=== PATIENT | female | born 1950 | race African-American/Black ===

== ENCOUNTER → 2021-07-09 13:20 | Outpatient (BNVA) | payer MEDICARE, MEDICAID, SELFPAY | DX: N39.41 Urge incontinence (principal) | CPT/HCPCS: 99212 ==

== ENCOUNTER 2021-11-25 05:00 | Outpatient (REF) | payer MEDICAID, SELFPAY | END 2021-11-25 05:01 | disposition home or self-care (01) | LOC: HO.MMNH2L 05:00 | PROVIDERS: Visit Provider Family Medicine | DX: Z13.89 Encounter for screening for other disorder (principal) ==

== ENCOUNTER → 2022-07-15 11:15 | Outpatient (BNVA) | payer OTHER, SELFPAY | PROVIDERS: PCP Internal Medicine; Visit Provider Nurse Practitioner Family | DX: N32.81 Overactive bladder (principal); N39.41 Urge incontinence | CPT/HCPCS: 51798; 99212 ==

== ENCOUNTER 2022-08-29 10:47 | Outpatient (REF) | payer OTHER, SELFPAY ==
--- NOTE | ~2022-08-29 | US_ITS ---
EXAMINATION: US RETROPERITONEAL LIMITED (RENAL ONLY) CLINICAL INFORMATION: Overactive bladder. COMPARISON: None TECHNIQUE: Real-time imaging of the kidneys. Limited exam due to patient mobility. FINDINGS: RIGHT KIDNEY: 9.8 x 4.8 x 3.4 cm (SAG x AP x TRV). The kidney is normal in size, contour, and echogenicity. Renal cortical thickness is normal. No renal calculi or hydronephrosis. Simple cyst in lower pole measuring 1.8 cm, for which no imaging follow-up is recommended. LEFT KIDNEY: 9.4 x 4.6 x 3.6 cm (SAG x AP x TRV). The kidney is normal in size, contour, and echogenicity. Renal cortical thickness is normal. No calculi or focal parenchymal lesions. No hydronephrosis. US/US retroperitoneal limited IMPRESSION: No acute sonographic abnormalities. The urinary bladder was not assessed, if deemed appropriate dedicated sonographic examinations of the bladder prior to urination and with post void images could be obtained.
== END 2022-08-29 10:48 | disposition home or self-care (01) ==
LOC: HO.US 10:47
PROVIDERS: Visit Provider Nurse Practitioner Family
DX: N39.41 Urge incontinence (principal); N32.81 Overactive bladder
CPT/HCPCS: 76775

== ENCOUNTER 2022-09-15 14:04 | Outpatient (REF) | payer OTHER, SELFPAY ==
--- NOTE | ~2022-09-15 | US_ITS ---
EXAMINATION: US PELVIS LIMITED (BLADDER) CLINICAL INFORMATION: Overactive bladder. COMPARISON: None TECHNIQUE: Real-time imaging of the bladder. FINDINGS: BLADDER: Well distended and normal. Bilateral ureteral jets are demonstrated. Prevoid bladder volume is 171 mL. Postvoid bladder volume is 59 mL. At the superior margin of the bladder, a small urachal cyst is suspected. US/US bladder IMPRESSION: 1. There is a borderline increased postvoid residual volume. 2. A small ureteral cyst is suspected at the upper margin of the urinary bladder. This is of doubtful clinical significance and could be more fully evaluated with cross-sectional imaging if of clinical concern.
== END 2022-09-15 14:05 | disposition home or self-care (01) ==
LOC: HO.US 14:04
PROVIDERS: PCP Internal Medicine; Visit Provider Nurse Practitioner Family
DX: N39.41 Urge incontinence (principal); N32.81 Overactive bladder
CPT/HCPCS: 76857

== ENCOUNTER → 2022-10-01 11:13 | Outpatient (BNVA) | payer OTHER, SELFPAY | PROVIDERS: PCP Internal Medicine; Visit Provider Nurse Practitioner Family | DX: N32.81 Overactive bladder (principal); N39.41 Urge incontinence | CPT/HCPCS: 51798; 99212 ==

== ENCOUNTER 2023-04-06 09:31 | Outpatient (AMB) | payer MEDICAID, SELFPAY ==
--- NOTE | 2023-04-06 09:35 | MHC.OFFVIS ---
Intake Intake Visit Reasons: 6m/PVR Intake Note: Patient is present for follow up [facility] Medications: toviaz Blood Thinner: aspirin, clopidogrel PVR: 0ml's Urology Surgeon Required: No Accompanied by: Daughter Allergies No Known Allergies [No Known Allergies*] Allergy (Verified 04/06/23 10:27) Medication List - Last Reconciled 04/06/23 by BRETT Sterling amlodipine 2.5 mg PO DAILY aspirin (Adult Aspirin Regimen) 81 mg PO DAILY atorvastatin 40 mg PO DAILY bimatoprost 0.01% (Lumigan) 1 drp ophthalmic (eye) BEDTIME brimonidine 0.1% (Alphagan P) 1 drp ophthalmic (eye) BID clopidogrel 75 mg PO DAILY dorzolamide-timolol 22.3-6.8 mg/mL 1 drp ophthalmic (eye) BID fesoterodine ER (Toviaz) 4 mg PO BEDTIME 90 days ketoconazole 2% appl topical BID PRN omeprazole 40 mg PO DAILY terazosin 2 mg PO BEDTIME 90 days valsartan 40 mg PO DAILY HPI HPI Comments History of Present Illness Details Kassidy is a pleasant 72 year old female patient of Dr. Montanez who is accompanied by her daughter at todays visit. She has a past medical history of pre diabetes, glaucoma, hypertension, hyperlipidemia, and overactive bladder. Patient presents to the office today for a follow up of her overactive bladder. When asked patient reports to be doing and feeling well. When asked she reports compliance with Fesoterodine 4mg and Toviaz 2 mg daily. When asked she reports to be very happy with current voiding parameters on Fesoterodine 4mg and Toviaz 2 mg daily. In office urinalysis results reviewed with the patient and her daughter today. PVR 0 mL. When asked she denies urinary urgency, urinary frequency, incontinence, nocturia, hematuria, dysuria, foul smelling urine, changes to urinary stream, flank pain, fever, and or chills. She otherwise denies any other issues or concerns at this time. [facility] Medical History Prediabetes Glaucoma Hypertension Hyperlipidemia Overactive bladder Urge incontinence of urine Review of Systems Const Reports as per HPI Eyes Reports as per HPI ENT Reports no additional complaints Card Reports as per HPI Resp Reports no additional complaints GI Reports no additional complaints Reports as per HPI Musc Reports no additional complaints Neuro Reports no additional complaints Psych Reports no additional complaints Endo Reports as per HPI Al/Lymph Reports no additional complaints Aller/Immun Reports no additional complaints Physical Exam Const General: cooperative, comfortable, no acute distress, well developed, alert and awake Nutritional Appearance: overweight Orientation/consciousness: patient oriented x3 Limitations: ambulation with cane HEENT Head: Yes normal to inspection, Yes normocephalic and Yes atraumatic Neck Neck: Yes normal visual inspection and Yes trachea midline Chest Chest palpation & inspection: normal inspection of the chest Resp Effort & Inspection: normal respiratory effort and able to speak in complete sentences Cardio Rate: regular rate GI Inspection: Yes normal to inspection Neuro General: patient oriented x3 Extrem General: Yes normal to inspection Psych Appearance: grossly normal Mental Status: mental status grossly normal Speech and movement: Normal speech and movement present and Clear speech present Affect: normal affect Attitude: cooperative Thought process: Normal thought process present Thought content: Normal thought content present Insight: Fair insight present (Psych) Judgement: Fair judgement present (Psych) Office Procedures Post Void Residual Post Residual Void Post Void Residual (PVR): 0 52110-Xfpm Void Residual by ultrasound Results AMB Urinalysis, Automated UA Leukoctes 0 Jennifer/uL Last Edit by PumpUp on 04/06/23 09:58 UA Nitrite Negative Last Edit by PumpUp on 04/06/23 09:58 UA Urobilinogen 0.2 mg/dL Last Edit by [employer]Up on 04/06/23 09:58 UA Protein 0 mg/dL Last Edit by [employer]Up on 04/06/23 09:58 UA pH 6.5 Last Edit by [employer]Up on 04/06/23 09:58 UA Blood 0 Dc/uL Last Edit by [employer]Up on 04/06/23 09:58 UA Specific [place] 1.015 Last Edit by [employer]Up on 04/06/23 09:58 UA Ketone Negative Last Edit by [employer]Up on 04/06/23 09:58 UA Bilirubin 0 mg/dL Last Edit by [employer]Up on 04/06/23 09:58 UA Glucose 0 mg/dL Last Edit by [employer]Up on 04/06/23 09:58 Results Reviewed Results Reviewed: Laboratory Last Values Urine pH (Auto) 6.5 04/06/23 09:40 Specific [place] (Auto) 1.015 04/06/23 09:40 Urine Protein (Auto) 0 mg/dL 04/06/23 09:40 Glucose (UA)(Auto) 0 mg/dL 04/06/23 09:40 Urine Ketones (Auto) Negative 04/06/23 09:40 Urine Blood (Auto) 0 Dc/uL 04/06/23 09:40 Urine Nitrite (Auto) Negative 04/06/23 09:40 Urine Bilirubin (Auto) 0 mg/dL 04/06/23 09:40 Urine Urobilinogen (Auto) 0.2 mg/dL 04/06/23 09:40 Leukocyte Esterase (Auto) 0 Jennifer/uL 04/06/23 09:40 Assessment & Plan Assessment & Plan (1) Overactive bladder: Code(s): N32.81 - Overactive bladder (2) Urge incontinence of urine: Code(s): N39.41 - Urge incontinence Plan In office urinalysis results reviewed with the patient and her daughter today; as noted above. PVR 0 mL. When asked patient reports to be very happy with current voiding parameters on 4 mg of Toviaz daily and 2 mg of terazosin at bedtime. She denies any bothersome urinary issues or concerns at this time. Discussed bladder triggers/irritants Continue Toviaz and terazosin as discussed and prescribed Follow-up in 6 months with PVR; or sooner with any issues, concerns, and or questions. Orders: Orders AMB Urinalysis Automated Today Z13.9 - Encounter for screening, unspecified AMB Post Void Residual by ultrasound Today N32.81 - Overactive bladder Patient Instructions: The patient had an opportunity to ask questions regarding the treatment plan. All questions were answered. Physical exam, labs, and imaging were discussed and reviewed in detail. As well as risks, benefits, and discussion of treatment choices. No major barriers to understanding were identified. The patient expressed understanding and agreement with the above treatment plan. The patient was made aware they should contact our office by phone for worsening of their current condition, the appearance of new symptoms, or with any questions or concerns. Compliance is encouraged with any medications and follow up testing that is ordered. It is a privilege to be allowed the opportunity to participate in? your urological care.? Again, if you have any questions or concerns If you have any questions or concerns please do not hesitate to contact me. The office is [phone]. This note is constructed using voice recognition software. While every effort has been made to ensure accuracy floor layer helper errors may have been included. Yours sincerely, JAMES Sterling-LAWRENCE Coding Level of Care Code Est Pt Level 3 (51774) Diagnoses Overactive bladder N32.81 Urge incontinence of urine N39.41 CPT Codes Post Residual Void - PVR CPT Code: 93766-Hdbx Void Residual by ultrasound ([id number])
== END 2023-04-06 10:13 | disposition home or self-care (01) ==
PROVIDERS: PCP Internal Medicine; Visit Provider Nurse Practitioner Family
DX: N32.81 Overactive bladder (principal); N39.41 Urge incontinence; Z13.9 Encounter for screening, unspecified
CPT/HCPCS: 99213

== ENCOUNTER → 2023-04-06 09:31 | Outpatient (BNVA) | payer OTHER, SELFPAY | PROVIDERS: Visit Provider Nurse Practitioner Family | DX: N32.81 Overactive bladder (principal); N39.41 Urge incontinence | CPT/HCPCS: 51798; 81003; 99212 ==

== ENCOUNTER 2024-01-22 11:18 | Outpatient (AMB) | payer MEDICAID, SELFPAY ==
--- NOTE | 2024-01-22 12:05 | MHC.OFFVIS ---
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: No Accompanied by: Daughter Allergies No Known Allergies [No Known Allergies*] Allergy (Verified 01/22/24 12:34) Medication List - Last Reconciled 01/22/24 by Anusha Joyce [employer]MER- amlodipine 2.5 mg PO DAILY atorvastatin 40 mg PO DAILY bimatoprost 0.01% (Lumigan) 1 drp ophthalmic (eye) BEDTIME brimonidine 0.1% (Alphagan P) 1 drp ophthalmic (eye) BID clopidogrel 75 mg PO DAILY dorzolamide-timolol 22.3-6.8 mg/mL 1 drp ophthalmic (eye) BID fesoterodine ER (Toviaz) 4 mg PO BEDTIME 90 days ketoconazole 2% appl topical BID PRN omeprazole 40 mg PO DAILY terazosin 2 mg PO BEDTIME 90 days valsartan 40 mg PO DAILY HPI Comments Details: Kassidy is a pleasant 73year old female patient of Dr. Montanez who is accompanied by her daughter at todays visit. She has a past medical history of pre diabetes, glaucoma, hypertension, hyperlipidemia, and overactive bladder. Patient presents to the office today for a follow up of her overactive bladder. When asked patient reports to be doing and feeling well. When asked she reports compliance with Fesoterodine and Terazosin. When asked she reports to be very happy with current voiding parameters with asforementioned urological medications. In office urinalysis results reviewed with the patient and her daughter today. PVR 0 mL. When asked she denies urinary urgency, urinary frequency, nocturia, hematuria, dysuria, foul smelling urine, changes to urinary stream, flank pain, fever, and or chills. Daughter does report patient utilizes a proximally 4-5 Jasmin pads per day. She reports given her decreased mobility she has a difficult time getting to the bathroom on time. Discussed attempting to perform timed voiding verses trialing different/other medications. Previous workup has included a retroperitoneal ultrasound 10/02 noting bilateral kidneys with no hydronephrosis or renal calculi. Simple right-sided cysts measuring 1.8 cm which requires no imaging follow-up per radiology report. There is borderline increased postvoid residual in the bladder. A small ureteral cyst is suspected at the upper margin of the urinary bladder this is of doubtful clinical significance. Discussed potential near future in office cystoscopy and or urodynamics for further assessment evaluation. She otherwise denies any other issues or concerns at this time. [facility] Medical History Prediabetes Glaucoma Hypertension Hyperlipidemia Overactive bladder Urge incontinence of urine Review of Systems Const Reports as per HPI Eyes Reports as per HPI ENT Reports no additional complaints Card Reports as per HPI Resp Reports no additional complaints GI Reports no additional complaints Reports as per HPI Musc Reports no additional complaints Neuro Reports no additional complaints Psych Reports no additional complaints Endo Reports as per HPI Al/Lymph Reports no additional complaints Aller/Immun Reports no additional complaints Physical Exam Const General: cooperative, comfortable, no acute distress, well developed, alert and awake Nutritional Appearance: overweight Orientation/consciousness: patient oriented x3 Limitations: ambulation with cane HEENT Head: Yes normal to inspection, Yes normocephalic and Yes atraumatic Neck Neck: Yes normal visual inspection and Yes trachea midline Chest Chest palpation & inspection: normal inspection of the chest Resp Effort & Inspection: normal respiratory effort and able to speak in complete sentences Cardio Rate: regular rate GI Inspection: Yes normal to inspection Neuro General: patient oriented x3 Extrem General: Yes normal to inspection Psych Appearance: grossly normal Mental Status: mental status grossly normal Speech and movement: Normal speech and movement present and Clear speech present Affect: normal affect Attitude: cooperative Thought process: Normal thought process present Thought content: Normal thought content present Insight: Fair insight present (Psych) Judgement: Fair judgement present (Psych) Office Procedures Post Void Residual Post Residual Void Post Void Residual (PVR): 0 [id number]-[id number] Void Residual by ultrasound Results AMB Urinalysis, Automated UA Leukoctes 0 Jennifer/uL Last Edit by Juana Rizzo on 01/22/24 12:22 UA Nitrite Negative Last Edit by Juana Rizzo on 01/22/24 12:22 UA Urobilinogen 0.2 mg/dL Last Edit by Juana Rizzo on 01/22/24 12:22 UA Protein 15 mg/dL Last Edit by Juana Rizzo on 01/22/24 12:22 UA pH 6.0 Last Edit by Juana Rizzo on 01/22/24 12:22 UA Blood 0 Dc/uL Last Edit by Juana Milabrigida on 01/22/24 12:22 UA Specific [place] 1.020 Last Edit by Juana Milabrigida on 01/22/24 12:22 UA Ketone Negative Last Edit by Juana Milabrigida on 01/22/24 12:22 UA Bilirubin 0 mg/dL Last Edit by Juana Milabrigida on 01/22/24 12:22 UA Glucose 0 mg/dL Last Edit by Juana Milabrigida on 01/22/24 12:22 Results Reviewed Results Reviewed: Laboratory Last Values Urine pH (Auto) 6.0 01/22/24 12:20 Specific [place] (Auto) 1.020 01/22/24 12:20 Urine Protein (Auto) 15 mg/dL 01/22/24 12:20 Glucose (UA)(Auto) 0 mg/dL 01/22/24 12:20 Urine Ketones (Auto) Negative 01/22/24 12:20 Urine Blood (Auto) 0 Dc/uL 01/22/24 12:20 Urine Nitrite (Auto) Negative 01/22/24 12:20 Urine Bilirubin (Auto) 0 mg/dL 01/22/24 12:20 Urine Urobilinogen (Auto) 0.2 mg/dL 01/22/24 12:20 Leukocyte Esterase (Auto) 0 Jennifer/uL 01/22/24 12:20 Assessment & Plan Assessment & Plan (1) Overactive bladder: Code(s): N32.81 - Overactive bladder Category: Medical (2) Urge incontinence of urine: Code(s): N39.41 - Urge incontinence Category: Medical Plan In office urinalysis results reviewed with the patient and her daughter today; as noted above. PVR 0 mL. She currently denies any bothersome urinary issues or concerns. She reports be happy with current voiding parameters on Toviaz and terazosin as prescribed; will continue Discussed importance of timed voiding given decreased mobility. Discussed bladder triggers/irritants. Follow-up in 6 months with PVR; or sooner with any issues, concerns, and or questions. Orders: Orders AMB Post Void Residual by ultrasound 01/22/24 N32.81 - Overactive bladder AMB Urinalysis Automated 01/22/24 Z13.9 - Encounter for screening, unspecified Medications: Refilled terazosin 2 mg PO BEDTIME 90 caps 1RF 90 days fesoterodine ER (Toviaz) 4 mg PO BEDTIME 90 tabs 1RF 90 days Patient Instructions: The patient had an opportunity to ask questions regarding the treatment plan. All questions were answered. Physical exam, labs, and imaging were discussed and reviewed in detail. As well as risks, benefits, and discussion of treatment choices. No major barriers to understanding were identified. The patient expressed understanding and agreement with the above treatment plan. The patient was made aware they should contact our office by phone for worsening of their current condition, the appearance of new symptoms, or with any questions or concerns. Compliance is encouraged with any medications and follow up testing that is ordered. It is a privilege to be allowed the opportunity to participate in? your urological care.? Again, if you have any questions or concerns If you have any questions or concerns please do not hesitate to contact me. The office is [phone]. This note is constructed using voice recognition software. While every effort has been made to ensure accuracy security technician errors may have been included. Yours sincerely, BRETT Sterling Coding Level of Care Code Est Pt Level 3 (50995) Complex EM visit Add On G2211 Diagnoses Overactive bladder N32.81 Urge incontinence of urine N39.41 CPT Codes Post Residual Void - PVR CPT Code: 61011-Hixj Void Residual by ultrasound ([id number])
== END 2024-01-22 12:33 | disposition home or self-care (01) ==
PROVIDERS: PCP Internal Medicine; Visit Provider Nurse Practitioner Family
DX: Z13.9 Encounter for screening, unspecified (principal)
CPT/HCPCS: 99213

== ENCOUNTER → 2024-01-22 11:18 | Outpatient (BNVA) | payer MEDICAID, SELFPAY | PROVIDERS: PCP Internal Medicine; Visit Provider Nurse Practitioner Family | DX: N39.41 Urge incontinence (principal); N32.81 Overactive bladder | CPT/HCPCS: 51798; 81003; 99212 ==